=== PATIENT | male | born 1990 | race Caucasian/White ===

== ENCOUNTER 2023-10-13 15:14 | Inpatient (IN) | payer BC, OTHER ==
[~2023-10-13] VITALS: Ht 185.4 cm; Wt 130.4 kg
[2023-10-13 15:32] LABS: Basophils # (auto) 0.1 10 ^3/uL (0-0.2); Basophils % (auto) 0.9 % (0.0-2.0); Eosinophils # (auto) 0.1 10 ^3/uL (0-0.8); Eosinophils % (auto) 0.8 % (0.0-7.0); Hematocrit 45.5 % (41.0-53.0); Hemoglobin 15.8 g/dL (13.5-17.5); Lymphocytes # (auto) 2.6 10 ^3/uL (0.4-5.4); Lymphocytes % (auto) 32.9 % (10.0-50.0); Mean Corpuscular Hemoglobin 30.8 pg (28.0-32.0); Mean Corpuscular Hgb Conc. 34.7 g/dL (32.0-36.0); Mean Corpuscular Volume 88.8 fL (80.0-100.0); Monocytes # (auto) 0.5 10 ^3/uL (0-1.3); Monocytes % (auto) 6.4 % (0.0-12.0); Neutrophils # (auto) 4.7 10 ^3/uL (1.6-8.6); Nucleated Red Blood Cells % 0.1 %; Red Blood Cells 5.12 10^6/uL (4.5-5.90); Red Cell Distribution Width 13.9 % (11.8-14.3)
[2023-10-13] MEDS: LORazepam 2MG/ML-1ML VIAL IV ONE (15:47)
[2023-10-13 15:50] LABS: Alanine Aminotransferase 39 U/L (7-40); Alkaline Phosphatase 72 U/L (46-116); Anion Gap 7 (5-15); Aspartate Aminotransferase 20 U/L (13-40); BUN/Creatinine Ratio 14.1 (10.0-20.0); Blood Urea Nitrogen 12 mg/dL (9-23); Calcium 9.7 mg/dL (8.7-10.4); Carbon Dioxide 27 mmol/L (20-30); Chloride 107 mmol/L (98-107); Glucose 150 mg/dL (74-106); Magnesium 1.8 mg/dL (1.6-2.6); Potassium 4.2 mmol/L (3.5-5.1); Sodium 141 mmol/L (136-145)
[2023-10-13 15:51] LABS: Albumin 4.4 g/dL (3.2-4.8); Bilirubin, Total 0.6 mg/dL (0.2-1.0); Total Protein 7.3 g/dL (5.7-8.2)
[2023-10-13 15:55] LABS: INR 0.93 (0.9-1.15); Partial Thromboplastin Time 26.9 SEC (24.5-34.5); Prothrombin Time 9.9 sec (9.3-11.8)
[2023-10-13] MEDS: ADENOSINE 6 MG/2 ML INJ IV ONE (17:02)
[2023-10-13 18:15] LABS: Urine Bacteria None Seen /hpf (None Seen)
[2023-10-13 18:29] LABS: Urine Blood Negative /uL (Negative); Urine Clarity Clear (Clear); Urine Color Light-Yellow (Yellow); Urine Protein, UAD TRACE (Negative); Urine Specific Gravity 1.024 (1.001-1.035); Urine Urobilinogen Normal (Negative); Urine WBC 1 /hpf (0 - 3); Urine pH 7.5 (5.0-9.0)
[2023-10-13] MEDS ORDERED: ADENOSINE 6 MG/2 ML INJ IV ONE (18:30)
[2023-10-13 18:35] LABS: Amphetamine Screen, Urine Neg (NEGATIVE); Barbiturate Scree,Urine Neg (NEGATIVE); Benzodiazephine Screen, Urine Neg (NEGATIVE); Cannabinoid Screen, Urine Neg (NEGATIVE); Cocaine Screen, Urine Neg (NEGATIVE); Opiate Scree,Urine Neg (NEGATIVE); Phencyclidine Screen, Urine Neg (NEGATIVE)
[2023-10-13] MEDS ORDERED: METOPROLOL TARTRATE 25 MG TAB PO ONE (18:45)
[2023-10-13 19:02] VITALS: PULSE 122; RESP 18; O2SAT 95
[2023-10-13] MEDS: dilTIAZem 25 MG/5 ML VIAL IV ONE (19:09)
[2023-10-13] MEDS: dilTIAZem 125mg/125ml BAG KIT 125 ML IV ONE (19:14)
[2023-10-13 19:30] VITALS: PULSE 116; RESP 12; O2SAT 95
[2023-10-13] MEDS: LABETALOL HCL 20 MG/4 ML VL IV ONE (19:53)
[2023-10-13] MEDS ORDERED: MORPHINE SULFATE INJ 2 MG/ml SYRG IV PRN (20:00)
[2023-10-13] MEDS ORDERED: ONDANSETRON HCL 4 MG/2 ML VIAL IV PRN (20:00)
[2023-10-13] MEDS ORDERED: NITROGLYCERIN 0.4 MG SL TAB SL PRN (20:00)
[2023-10-13] MEDS ORDERED: TEMAZEPAM 15 MG CAP PO PRN (20:00)
[2023-10-13 20:11] VITALS: PULSE 96; RESP 12; O2SAT 97
[2023-10-13 20:12] LABS: Hematocrit 42.7 % (41.0-53.0); Hemoglobin 14.9 g/dL (13.5-17.5)
[2023-10-13 20:15] LABS: Triglycerides 332 mg/dL (< 150)
[2023-10-13 20:16] LABS: LDL Cholesterol 111 mg/dL (< 100)
[2023-10-13 20:17] LABS: HDL Cholesterol 36 mg/dL (40-59)
[2023-10-13 20:39] LABS: Cholesterol 173 mg/dL (< 200)
[2023-10-14] VITALS (10 sets, daily range): BP systolic 126–153; BP diastolic 58–96; PULSE 69–85; RESP 16–20; TEMP 97.8–98.6; O2SAT 94–99
[2023-10-14] MEDS: METOPROLOL TARTRATE 25 MG TAB PO SCH (09:33)
[2023-10-15 01:00] VITALS: BP 134/82; PULSE 77; RESP 20; TEMP 98; O2SAT 100
[2023-10-15 05:00] VITALS: BP 126/70; PULSE 70; RESP 21; TEMP 97.4; O2SAT 99
[2023-10-15 08:00] VITALS: PULSE 63; PULSE 66; RESP 18; O2SAT 98
[2023-10-15 10:45] VITALS: BP 127/77; PULSE 66; RESP 18; TEMP 97.3; O2SAT 98
[2023-10-16 08:54] LABS: Hepatitis B Surface Antigen Negative (Negative)
[2023-10-16 09:15] LABS: Hepatitis C Antibody Negative (Negative)
== END 2023-10-15 13:01 | disposition home or self-care (01) | DRG 305 ==
LOC: ER 15:14 → TELE 19:51 → TELE-E-ADS 23:49
PROVIDERS: ADMIT Nurse Practitioner; ATTEND Nurse Practitioner
DX: I16.0 Hypertensive urgency (principal); E66.01 Morbid (severe) obesity due to excess calories; G47.33 Obstructive sleep apnea (adult) (pediatric); F41.1 Generalized anxiety disorder; F41.0 Panic disorder [episodic paroxysmal anxiety]; Z68.37 Body mass index [BMI] 37.0-37.9, adult; Z79.899 Other long term (current) drug therapy
CPT/HCPCS: 36415; 71045; 80053; 80061; 80307; 81001; 83735; 83880; 84439; 84443; 84484; 85014; 85018; 85025; 85379; 85610; 85730; 86803; 87340; 93005; 93306; 93970; 99291; G0378